=== PATIENT | female | born 1960 | race Caucasian/White ===

== ENCOUNTER 2018-10-16 07:01 | Day surgery (SDC) | payer OTHER ==
[~2018-10-16 07:01] MED LIST: CEFAZOLIN 2 GM/50 ML (PMX) 50 ML IVPB; SOD CHLORIDE 0.9% 1,000 ML IV
[2018-10-16] MEDS ORDERED: BUPIVACAINE 0.25% (MPF) 30 ML INJ (09:16)
[2018-10-16] MEDS ORDERED: MIDAZOLAM 1 MG/ML 2 ML INJ ×2 (09:35→10:11)
[2018-10-16] MEDS ORDERED: CEFAZOLIN 1 GM INJ (09:35)
[2018-10-16] MEDS ORDERED: FENTAnyl 50 MCG/ML VIAL (09:35)
[2018-10-16] MEDS ORDERED: PROPOFOL 20 ML (09:35)
[2018-10-16] MEDS: LIDOCAINE 2% (MDV) 20 ML INJ (10:04)
[2018-10-16] MEDS: BUPIVACAINE 0.5%/EPI (SDV) 30 ML INJ (10:04)
[2018-10-16] MEDS ORDERED: ONDANSETRON 4 MG INJ (10:42)
[2018-10-16] MEDS ORDERED: METOCLOPRAMIDE 10 MG INJ (10:42)
[2018-10-16] MEDS ORDERED: OXYCODONE/ACETAMINOPHEN (5/325) TAB PO ×2 (11:00)
[2018-10-16] MEDS ORDERED: MIDAZOLAM 1 MG/ML 2 ML INJ IV (11:00)
[2018-10-16] MEDS ORDERED: DIPHENHYDRAMINE 50 MG INJ IV (11:00)
[2018-10-16] MEDS ORDERED: MEPERIDINE 25 MG INJ IV (11:00)
[2018-10-16] MEDS ORDERED: FENTAnyl 50 MCG/ML VIAL IV ×3 (11:00)
[2018-10-16] MEDS ORDERED: LABETALOL HCL 20MG INJ IV (11:00)
[2018-10-16] MEDS ORDERED: EPHEDrine SULFATE 50 MG/5 ML SYG IV (11:00)
[2018-10-16] MEDS ORDERED: hydrALAzine 20 MG INJ IV (11:00)
[2018-10-16] MEDS ORDERED: METOCLOPRAMIDE 10 MG INJ IV (11:00)
[2018-10-16] MEDS ORDERED: ONDANSETRON 4 MG INJ IV (11:00)
== END 2018-10-16 12:55 | disposition home or self-care (01) ==
LOC: SDS 07:01
DX: D17.21 Benign lipomatous neoplasm of skin and subcutaneous tissue of right arm (principal); D17.1 Benign lipomatous neoplasm of skin and subcutaneous tissue of trunk; D17.23 Benign lipomatous neoplasm of skin and subcutaneous tissue of right leg; I10 Essential (primary) hypertension; J45.909 Unspecified asthma, uncomplicated
CPT/HCPCS: 11406; 88304